=== PATIENT | female | born 1990 | race Caucasian/White ===

== ENCOUNTER 2019-02-02 05:22 | Inpatient (IN) | payer OTHER ==
--- NOTE | 2019-01-29 07:05 | HPE ---
DATE OF PLANNED ADMISSION: 02/02/2019 This lady is a 28-year-old, 2, para 1. Last menstrual period (LMP) is 04/22/2018. Estimated date of confinement (EDC) is 02/09/2019. Her EDC is based on an early ultrasound at 7 weeks 0 days. PAST HISTORY: She had macrosomia March of 2016, had a primary section for a male infant, 10 pounds 1 ounce. Her risk factors are that she had macrosomia previously, previous section. She has had excessive weight gain in this . Otherwise, the rest of her care is unremarkable. Her lab values are her blood group is A positive, HIV negative, hepatitis negative, rapid plasma reagin (RPR) negative, rubella immune. Varicella immune. Pap was normal. Urine was positive for group B streptococcus (GBS). Gonorrhea and chlamydia were negative. 1-hour glucose was 95, and her 28-week glucose tolerance test (GTT) was 98. Tdap was given, and she is GBS positive. On examination today, symphysis fundus height is 44, vertex presenting. Category 1 strip. Four quadrant bowel sounds are noted. Blood pressure is 100/64, respirations are 18, pulse is 72, and she is afebrile. Body mass index (BMI) is 25.99, and she is 5 feet 6 inches. Her prepregnancy weight was 161 pounds, and she is now up to 198.6 pounds. The rest of the examination is unremarkable. She is normocephalic, atraumatic. Neck full range of motions. Pupils equal and reactive to light. Distal pulses are symmetric. No evidence of deep venous thrombosis (DVT), pulmonary embolism (PE), or superficial phlebitis. Chest is clear bilaterally to bases. No wheezes or rhonchi. No costovertebral angle (CVA) tenderness. Abdomen is soft. Previous section scar is noted. Symphysis fundus height is 44, vertex. Four quadrant bowel sounds and an active fetus. No vaginal bleeding or loss. She has no rashes, lesions, or pruritus. No arthralgia or myalgia. No complaints of joint pain. No nausea, vomiting, diarrhea, or constipation. She has no diabetic issues. She is to a soldier. No domestic violence, and she has a good support system. Reviewed the risks and benefits of section, including hemorrhage, infection, perforation of organs, , reoperation, remote possibility of hysterectomy for uncontrolled bleeding, remote possibility of laceration, remote possibility of blood transfusion, and the possibility of admission to the intensive care unit (NICU) for the if the baby in fact is macrosomic and requires blood sugar stabilization. After expressing understanding of the risks and benefits, signed the consent form and we await the anesthesia department for instructions regarding spinal and neonatology has been informed.
[~2019-02-02] VITALS: Ht 165.1 cm; Wt 89.5 kg
[2019-02-02] VITALS (8 sets, daily range): BP systolic 87–112; BP diastolic 51–69
[~2019-02-02 05:22] MED LIST: PRENTAB55 PO
[2019-02-02] MEDS ORDERED: LACTATED RINGER'S 1000 ML IV STA (06:01)
[2019-02-02] MEDS ORDERED: LR 1,000 ML IV SCH ×3 (06:01→10:00)
[2019-02-02] MEDS ORDERED: BUPIVACAINE HCL 0.25% 10 ML VIAL SC ONE (06:15)
[2019-02-02] MEDS ORDERED: ACETAMINOPHEN 650 MG SUPP PR SCH (06:15)
[2019-02-02] MEDS ORDERED: BICITRA 30ML SOLN UDC PO ONE (06:15)
[2019-02-02 06:24] LABS: HEMATOCRIT 35.6 % (36.0-47.0); HEMOGLOBIN 11.7 g/dl (12.0-15.5); MEAN CORPUSCULAR HEMOGLOBIN 29.6 pg (27.0-33.0); MEAN CORPUSCULAR HGB CONC 32.9 g/dl (32.0-36.5); MEAN CORPUSCULAR VOLUME 90.1 fl (80.0-96.0); PLATELET COUNT, AUTOMATED 138 10^3/uL (150-450); RED BLOOD COUNT 3.95 10^6/uL (4.00-5.40); WHITE BLOOD COUNT 9.1 10^3/uL (4.0-10.0)
[2019-02-02] MEDS ORDERED: MATE ADAPTER IV ONE (07:00)
[2019-02-02] MEDS ORDERED: VANCOMYCIN HCL IV ONE (07:00)
[2019-02-02] MEDS ORDERED: D5W IV ONE (07:00)
[2019-02-02] MEDS ORDERED: ONDANSETRON 4MG/2ML VIAL (J2405) As Ordered ONE (07:22)
[2019-02-02] MEDS ORDERED: OXYTOCIN INJ 10 UNITS/ML VIAL (J2590) As Ordered ONE ×2 (07:22→08:39)
[2019-02-02] MEDS ORDERED: dexameTHASONE 4 MG/ML 1ML VIAL (J1100) As Ordered ONE (07:22)
[2019-02-02] MEDS ORDERED: MORPHINE PRES-FREE INJ 10 MG/10 ML VIAL (J2274) As Ordered ONE (07:26)
[2019-02-02] MEDS ORDERED: fentaNYL 100 MCG/2 ML INJECTION (J3010) As Ordered ONE (07:26)
[2019-02-02] MEDS ORDERED: NALBUPHINE HCL 10 MG/ML AMP (J2300) IV PRN ×2 (07:39→10:00)
[2019-02-02] MEDS ORDERED: NALOXONE INJ 0.4 MG/1 ML VIAL (J2310) IV PRN ×2 (07:39)
[2019-02-02] MEDS ORDERED: METOCLOPRAMIDE INJ 10MG/2ML VIAL (J2765) IV PRN (07:39)
[2019-02-02] MEDS ORDERED: ONDANSETRON 4MG/2ML VIAL (J2405) IV PRN ×2 (07:39→10:00)
[2019-02-02] MEDS ORDERED: diphenhydrAMINE INJ 50MG/ML VIAL (J1200) IV PRN (07:39)
[2019-02-02] MEDS ORDERED: ePHEDrine SULFATE 25 MG/5 ML(5MG/ML) SYRINGE As Ordered ONE (07:50)
[2019-02-02 08:26] LABS: CORD GAS ABE V -1.1; CORD GAS HCO3 V 24.6 MEQ/L; CORD GAS O2 SAT V 75.5 %; CORD GAS PCO2 V 44.6 mmHg; CORD GAS PH V 7.359 UNITS; CORD GAS PO2 V 31.5 mmHg; CORD GAS TCO2 V 25.9 MEQ/L
[2019-02-02 08:28] LABS: CORD GAS ABE A -1.1; CORD GAS HCO3 A 27.9 MEQ/L; CORD GAS O2 SAT A 22.4 %; CORD GAS PCO2 A 66.8 mmHg; CORD GAS PH A 7.238 UNITS; CORD GAS PO2 A 14.9 mmHg; CORD GAS SBC A 21.8 MEQ/L; CORD GAS TCO2 A 29.9 MEQ/L
[2019-02-02] MEDS ORDERED: KETOROLAC 60 MG/2 ML VIAL (J1885) As Ordered ONE (08:33)
[2019-02-02] MEDS ORDERED: OXYTOCIN 30 UNITS IN 0.9% NaCl 500ML IV BAG (J2590) As Ordered ONE (08:54)
[2019-02-02] MEDS ORDERED: ANUSOL HC CREAM 30GM TOP PRN (09:45)
[2019-02-02] MEDS ORDERED: METHYLERGONOVINE MALEATE 0.2 MG TAB PO PRN (09:45)
[2019-02-02] MEDS ORDERED: MOM 30ML SUSPENSION UDC PO PRN (09:45)
[2019-02-02] MEDS ORDERED: MEASLES,MUMPS,RUBELLA VACCINE INJ (MMR-II) (90707) SC SCH (09:45)
[2019-02-02] MEDS ORDERED: RHOGAM 300 MCG (1500 IU) INJ (J2790) IM SCH (09:45)
[2019-02-02] MEDS ORDERED: OXYTOCIN DRIP 30 UNITS in APPROPRIATE DILUENT 1 EA IV ONE (09:45)
[2019-02-02] MEDS ORDERED: OXYTOCIN INJ 10 UNITS/ML VIAL (J2590) IV ONE (09:45)
[2019-02-02] MEDS ORDERED: PERCOCET 5MG/325MG TAB PO PRN (10:00)
[2019-02-02] MEDS ORDERED: fentaNYL 100 MCG/2 ML INJECTION (J3010) IV PRN (10:00)
[2019-02-02] MEDS: PERCOCET 5MG/325MG TAB PO PRN (11:41)
[2019-02-02] MEDS: KETOROLAC 30 MG/ML VIAL (J1885) IV SCH ×2 (15:04→20:52)
--- NOTE | 2019-02-02 21:01 | RO ---
DATE OF PROCEDURE: 02/02/2019 This lady is a 28-year-old 2, para 1 admitted for repeat section because of a history of previous macrosomia. Risk factors presently are macrosomia, transverse lie, polyhydramnios. PREPROCEDURE DIAGNOSIS: repeat ceserean POSTPROCEDURE DIAGNOSIS:repeat ceserean OPERATION PROPOSED: Repeat section. OPERATION PERFORMED: Repeat section. SURGEON: Nazario Ding MD SLATE WORKER: Dr. Mayo for retraction, extraction and visualization. ANESTHESIA: Spinal plus local anesthetic for intraperitoneal procedures. ESTIMATED BLOOD LOSS: 300 mL DESCRIPTION OF PROCEDURE: After appropriate time-out, prepped and draped in the supine position, Amaya catheter in the bladder draining clear urine. Acetaminophen suppository 1300 mg per rectum. Appropriate antibiotics preoperatively. Sequentials on the patient. A Pfannenstiel incision was made through the previous one, passing through abdominal layers securing hemostasis. Opening peritoneal cavity, bladder reflected well down anteriorly, low transverse incision into the uterus, artificial rupture of membranes (ARM), draining clear liquor. We drained off 1000 mL of amniotic fluid. Then, we were able to flex the head. Being that this baby was transverse requiring to move it towards the incisional site, we used one blade of the forceps to stabilize the baby's head while we pushed on the buttocks, and we were able to extract a live female weighing 9 pounds 1 ounce, 4110 grams, scores of 8 and 9 at one and five minutes respectively. Arterial pH 7.23, base excess -1.1, venous pH 7.35, base excess -1.1. Placenta was manually removed, three vessels in the cord, membranes and tissues intact. The uterus contracted well down on Pitocin. The lower segment was oversewn in the usual fashion in two layers and reperitonealization was performed. With instrument and pad count correct, both ovaries and tubes appeared to be normal. The abdomen was closed, running stitch for the peritoneum, same for the fascia, interrupted for subcu, Dexon to the skin, Marcaine 0.25%, 10 mL to the incisional site and spray and Telfa, and the patient was sent to recovery in good condition. ADDENDUM: There was a cord times one around the neck, loose. MTDD
[2019-02-03 02:00] VITALS: BP 87/52
[2019-02-03] MEDS: KETOROLAC 30 MG/ML VIAL (J1885) IV SCH (02:56)
[2019-02-03 06:19] VITALS: BP 89/58
[2019-02-03 07:03] LABS: HEMATOCRIT 35.1 % (36.0-47.0); HEMOGLOBIN 11.5 g/dl (12.0-15.5); MEAN CORPUSCULAR HEMOGLOBIN 30.2 pg (27.0-33.0); MEAN CORPUSCULAR HGB CONC 32.8 g/dl (32.0-36.5); MEAN CORPUSCULAR VOLUME 92.1 fl (80.0-96.0); PLATELET COUNT, AUTOMATED 149 10^3/uL (150-450); RED BLOOD COUNT 3.81 10^6/uL (4.00-5.40); WHITE BLOOD COUNT 11.7 10^3/uL (4.0-10.0)
[2019-02-03] MEDS: DOCUSATE SODIUM 100 MG CAP PO PRN ×2 (07:52→19:56)
[2019-02-03] MEDS: PRENATAL VITAMINS CHEWABLE TABLET PO SCH (07:53)
[2019-02-03] MEDS: PERCOCET 5MG/325MG TAB PO PRN ×3 (07:53→22:19)
--- NOTE | 2019-02-03 09:55 | IPN ---
DATE: 02/03/2019 This lady is a 28-year-old 2 now para 2 who came in for elective repeat section because of macrosomia, delivered a live female infant, 9 pounds 1 ounce, 4110 grams, scores of 8 and 9 at one and five minutes respectively. Arterial pH 7.23, base excess -1.1, venous pH 7.35, base excess -1.1. Baby had some significant hypoglycemic episodes because of its large size, however, that has resolved over the last 24 hours. Her course presently is uneventful. Uterus is well contracted under Pitocin. Her blood pressures is 89/58, respirations are 17, pulse 65, temperature is 98.1. She has always been hypotensive even antepartum. Her admitting hemoglobin was 11.7, hematocrit 35.6 and platelets are 138. day #1 hemoglobin is pending. The rest examination is unremarkable. Normocephalic, atraumatic. Neck full range of motion. Pupils equal and reactive to light. Distal pulses are symmetric. No evidence of deep vein thrombosis (DVT), pulmonary embolism (PE), or superficial phlebitis. Chest is clear bilaterally to the bases. No wheezes or rhonchi. No CVA tenderness. Abdomen is soft, four quadrant bowel sounds. Her incision is clean and dry. Lochia is moderate. The patient is breast-feeding doing well, has had the Amaya catheter removed and is voiding well, passing gas. Plan of management is to maintain her another 24 hours as baby is being stabilized and discharged home with a 2 week incision check and 6 week check. Medications were dispensed at [facility], has gone to pick them up. In summary we have a term gestation, repeat section, live female infant.
[2019-02-03 10:00] VITALS: BP_SYST 104; BP_SYST 98; BP_DIAS 56; BP_DIAS 57
[2019-02-03] MEDS: IBUPROFEN 800 MG TAB PO PRN ×2 (11:23→19:56)
[2019-02-03] MEDS ORDERED: IBUPROFEN 800 MG TAB PO SCH (11:45)
[2019-02-03 14:00] VITALS: BP 100/58
[2019-02-03 18:00] VITALS: BP 92/63
[2019-02-04 05:43] VITALS: BP 100/61
[2019-02-04] MEDS: PRENATAL VITAMINS CHEWABLE TABLET PO SCH (07:47)
[2019-02-04] MEDS: PERCOCET 5MG/325MG TAB PO PRN ×2 (07:47→11:53)
[2019-02-04] MEDS ORDERED: IBUP80TA PO (11:24)
[2019-02-04] MEDS ORDERED: PERCOCET PO (11:24)
[2019-02-04] MEDS ORDERED: PROC1CRE5 TOP (11:24)
[2019-02-04] MEDS ORDERED: COLA100C5 PO (11:24)
[2019-02-04] MEDS: DOCUSATE SODIUM 100 MG CAP PO PRN (11:53)
--- NOTE | 2019-02-04 14:02 | DSES ---
DATE OF ADMISSION: 02/02/2019 DATE OF DISCHARGE: 28-year-old 2, now para 2 admitted for repeat section live female infant, 9 pounds 1 ounce, 4110 grams, scores of 8 and 9 and 1 and 5 minutes respectfully. Arterial pH 7.23, base excess -1.1, venous pH 7.35, base excess -1.1. Her risk factors were macrosomia, transverse lie, repeat section, polyhydramnios. On her second postoperative day we discussed phlebitis, cystitis, mastitis, metritis and cellulitis, diet, excise pain management, perineal breast and wound care. On discharge her blood pressure was 100/64, respirations 16, temperature 98.2 and pulse was 65. Her admitting hemoglobin 11.7, hematocrit 35.6 and platelets 138. Discharge hemoglobin 11.5, hematocrit 35.1 and platelets 149. The rest examination unremarkable. Normocephalic, atraumatic. Neck full range of motion. Pupils equal and reactive to light. Distal pulses symmetric. No evidence of deep venous thrombosis (DVT), pulmonary embolism (PE) or superficial phlebitis. Chest is clear bilaterally bases. No wheezes or rhonchi. No CVA tenderness. Abdomen soft, uterus two below. Lochia is moderate. Four quadrant bowel sounds are noted. Incision clean and dry. There is no rashes, lesions or pruritus. No arthralgia, myalgia. No complaint of cough, wheeze, shortness breath or dyspnea on exertion. No nausea, vomiting, diarrhea or constipation. In summary we have a term gestation repeat section, live female , discharge, for 2-week incision check with [facility], 6-week check with [facility]. Medications were dispensed at discharge.
== END 2019-02-04 13:30 | disposition home or self-care (01) | DRG 773 ==
LOC: M LDI 05:22 → M OBS 11:08
PROVIDERS: ADMIT Obstetrics & Gynecology; ATTEND Obstetrics & Gynecology
PROC: 10D00Z1 Extraction of Products of Conception, Low, Open Approach (ICD-10-PCS; principal; 2019-02-02 07:30)
DX: O34.211 Maternal care for low transverse scar from previous cesarean delivery (principal); Z37.0 Single live birth; O99.820 Streptococcus B carrier state complicating pregnancy; O40.3XX0 Polyhydramnios, third trimester, not applicable or unspecified; O32.2XX0 Maternal care for transverse and oblique lie, not applicable or unspecified; O36.63X0 Maternal care for excessive fetal growth, third trimester, not applicable or unspecified; Z3A.39 39 weeks gestation of pregnancy